=== PATIENT | male | born 1975 | race Hispanic/Latino ===

== ENCOUNTER 2017-04-23 10:41 | Emergency (ER) | payer OTHER ==
[2017-04-23 10:52] VITALS: BMI 25.1
[2017-04-23] MEDS ORDERED: Sodium Chloride 0.9% 1,000 ML IV STA (11:16)
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
[2017-04-23 12:08] LABS: BASO % 0.3 % (0.0-2.0); EOS # 0.2 K/uL (0.0-0.7); EOS % 2.6 % (0.0-4.0); LYMPH # 1.6 K/uL (1.0-4.3); MEAN CELL VOLUME 91.6 fl (80.0-94.0); MEAN CORPUSCULAR HEMOGLOBIN 31.4 pg (27.0-31.0); MEAN CORPUSCULAR HGB CONC 34.3 g/dL (33.0-37.0); MEAN PLATELET VOLUME 7.8 fl (7.2-11.7); MONO # 0.4 K/uL (0.0-0.8); MONO % 6.2 % (0.0-10.0); NEUT # 4.8 K/uL (1.8-7.0); NEUT % 67.9 % (50.0-75.0); NRBC % 0.1 % (0.0-0.0); RED CELL DISTRIBUTION WIDTH 12.6 % (11.5-14.5)
[2017-04-23 12:27] LABS: ALB/GLOB RATIO 1.4 (1.0-2.1); ALCOHOL SERUM 90 mg/dl (0-10); ALKALINE PHOSPHATASE 67 U/L (38-126); ALT/SGPT 35 U/L (21-72); AST/SGOT 36 U/L (17-59); BILIRUBIN,TOTAL 0.6 mg/dl (0.2-1.3); BLOOD UREA NITROGEN 14 mg/dl (9-20); CALCIUM 9.1 mg/dL (8.4-10.2); CARBON DIOXIDE 22 mmol/L (22-30); CHLORIDE 108 mmol/L (98-107); GFR AFRICAN-AMERICAN > 60; GLUCOSE,RANDOM 77 mg/dL (75-110); LIPASE 46 U/L (23-300); POTASSIUM 4.2 MMOL/L (3.6-5.0); SODIUM 145 mmol/l (132-148); TOTAL PROTEIN 8.3 G/DL (6.3-8.2)
[2017-04-23 13:52] VITALS: BP 119/76; PULSE 67; TEMP 98.8
[2017-04-30 11:44] VITALS: O2SAT 98
== END 2017-04-23 14:09 | disposition home or self-care (01) ==
LOC: H.ER 10:41
DX: E86.0 Dehydration (principal); F10.10 Alcohol abuse, uncomplicated
CPT/HCPCS: 80053; 80320; 80324; 80345; 80346; 80349; 80353; 80358; 80361; 83690; 83992; 85025; 96361; 96374; 96375; 99283; J1885; J2405; J7040